=== PATIENT | female | born 1985 | race Caucasian/White ===

== ENCOUNTER → 2021-05-12 17:11 | Outpatient (BNVA) | payer OTHER, SELFPAY | PROVIDERS: Visit Provider Emergency Medicine | DX: R39.9 Unspecified symptoms and signs involving the genitourinary system (principal); J30.2 Other seasonal allergic rhinitis; N39.0 Urinary tract infection, site not specified | CPT/HCPCS: 81000 ==

== ENCOUNTER 2024-07-21 09:54 | Emergency (ER) | payer OTHER, SELFPAY ==
--- NOTE | 2024-07-21 10:00 | ECG_ITS ---
[facility] Test Date: 2024-07-21 Pat Name: Manasa Walker Department: Room: Gender: Female Fha Underwriter: : 1985 Requested By: Sheryl Parekh Order Number: [id number] Chacon MD: Pascual Contreras M.D. Measurements Intervals [place] Rate: 97 P: 70 MD: 153 QRS: 73 QRSD: 86 T: 56 QT: 315 QTc: 401 Interpretive Statements SINUS RHYTHM INTERPRETATION BASED ON A DEFAULT AGE OF 40 YEARS No previous ECG available for comparison Electronically Signed On 07-22-2024 21:43:55 OBSTETRICS TECH by Pascual Contreras M.D. [email or web address]
[2024-07-21 10:06] VITALS: BP 107/63; PULSE 87; RESP 16; TEMP 36.4; O2SAT 98; BMI 25.8
--- NOTE | 2024-07-21 10:15 | XR_ITS ---
WS: [id number] XR chest 1V portable [id number] REASON FOR EXAM: chest pain FINDINGS: The heart and the mediastinum are within normal limits. Calcified granulomas disease bilaterally. No acute pulmonary parenchymal or pleural abnormality. Bony thorax is intact without significant abnormality. XR/XR chest 1V portable [id number] IMPRESSION: No acute abnormality.
[2024-07-21 10:16] VITALS: BP 107/63; PULSE 91; RESP 16; O2SAT 96
--- NOTE | 2024-07-21 10:16 | ED_ITS ---
HPI - General Adult 2 General: Chief complaint: Chest Pain Stated complaint: cp, headache Time Seen by Provider: 07/21/24 10:05 Source: patient Mode of arrival: ambulatory Limitations: no limitations History of Present Illness: Patient is a 39-year-old female here for evaluation of intermittent chest pains over the past few weeks as well as a migraine headache. She states she has a longstanding history of migraine headaches and normally takes Tylenol. She states her headache today feels identical to previous migraines. Patient feels like her chest pain is mild and intermittent. No exertional symptoms. No known history of cardiac or pulmonary disease. Vital signs are stable upon arrival. She reports history of ADHD, autism, POTS. Onset (ago): day(s) Location: head and chest Severity: mild Pain Consistency: intermittent Relieving factors: none Exacerbating factors: none Associated symptoms: Reports chest pain and headache(s); Deny dyspnea, malaise, nausea, rash, palpitations, syncope or vomiting Related Data Home Medications Medication Instructions Recorded Confirmed bupropion HCl 150 mg 24 hr tablet, 150 mg PO QAM 05/12/21 07/21/24 extended release (Wellbutrin XL) Allergies Allergy/AdvReac Type Severity Reaction Status Date / Time diphenhydramine AdvReac Intermediate panic Verified 03/14/22 16:03 [From Benadryl] attack, migraine Review of Systems 2 Const: Denies: fever(s), chills, body aches, fatigue or malaise Eyes: Denies: change in vision or blurry vision Card: Reports: chest pain; Denies: palpitations, irregular heart rhythm, edema, swelling of feet/ankles, lightheadedness, syncope, pre-syncope, dyspnea on exertion, orthopnea, leg pain with exertion or acrocyanosis Resp: Denies: dyspnea, productive cough or pain on inspiration GI: Denies: abdominal pain, nausea, vomiting, heartburn or diarrhea : Denies: dysuria Musc: Denies: neck pain, back pain or joint pain Skin/Breast: Denies: rash Neuro: Reports: headache(s) and dizziness (Occasional-normal with her POTS); Denies: numbness in extremities, weakness in extremities or sensory changes PFSH ED 2 PFSH: Medical History Recurrent UTI Seasonal allergies Social History Smoking and tobacco/nicotine status: current some day tobacco/nicotine user cigarettes [ Other cigarette details: 1 once a week] Second hand smoke exposure: No Alcohol intake: current Alcohol intake frequency: few times a week Substance/Drug Use: current Substance/Drug use frequency: daily Physical Exam 2 Const: COMMON NORMALS: no acute distress, average body habitus, patient oriented x3, no limitations, healthy appearing, alert and well nourished G ENERAL APPEARANCE: cooperative ORIENTATION/CONSCIOUSNESS: Yes awake, Yes oriented to person, Yes oriented to place and Yes oriented to time HENMT: COMMON NORMALS: normocephalic and atraumatic HEAD & SCALP: normal to inspection, normocephalic and atraumatic Eye: COMMON NORMALS: Equal, round and reactive pupils present and EOMs intact bilaterally GENERAL EYE: appearance normal, both eyes and all related structures and normal light reflex PUPIL: Yes Equal, round and reactive pupils present DIRECT OPHTHALMOSCOPY: Yes normal light reflex Neck/C-Spine: COMMON NORMALS: full ROM, no lymphadenopathy, supple and no meningeal signs Chest: COMMONS NORMALS: normal inspection of the chest and normal palpation of entire chest wall Resp: COMMON NORMALS: normal respiratory effort and clear to auscultation bilaterally AUSCULTATION: clear to auscultation bilaterally Cardio: COMMON NORMALS: regular rate and regular rhythm RATE: regular rate RHYTHM: regular rhythm GI: COMMON NORMALS: Normal to inspection, nondistended, normoactive bowel sounds present, Soft to palpation, non-tender, No hepatosplenomegaly present and no masses PALPATION: Yes Soft to palpation and Yes No hepatosplenomegaly present : COMMON NORMALS: Yes no CVA tenderness BLADDER/KIDNEY EXAM: Yes no CVA tenderness Back/Pelvis: COMMON NORMALS: no CVA tenderness and thoracic and lumbar spine normal to inspection Extremity: COMMON NORMALS: normal to inspection, no clubbing, cyanosis or edema, no calf tenderness and no pedal edema GENERAL: Yes normal exam except as noted Neuro: MARIO ALBERTO COMA SCALE: document GCS findings [place] coma scale eye opening: Spontaneous Mario Alberto coma scale verbal response: Orientated Mario Alberto coma scale motor response: Obey commands Mario Alberto coma scale total score: 15 COMMON NORMALS: patient oriented x3, CN's II-XII intact bilaterally, moves all extremities, no focal motor deficits, no sensory deficits noted and gait normal SENSORIUM/ORIENTATION: Yes alert, Yes oriented to person, Yes oriented to place and Yes oriented to time MENINGEAL SIGNS: Yes no meningeal signs Skin: COMMON NORMALS: no rashes or lesions noted GENERAL SKIN EXAM: no rashes or lesions noted Course 2 Vital Signs: Vital signs: Vital Signs Temperature 97.6 F 07/21/24 10:06 Pulse Rate 91 07/21/24 10:16 Respiratory Rate 16 07/21/24 10:16 Blood Pressure 107/63 07/21/24 10:16 Pulse Oximetry 96 07/21/24 10:16 Oxygen Delivery Me thod Room Air 07/21/24 10:16 MDM - General Adult Medical Decision Making Patient is a 39-year-old female with no known cardiac history here for intermittent episodes of chest pain over the past several weeks as well as migraine headache. She states her headache feels identical to previous migraine headaches. She was given IV Toradol and radiating headache now to 09/29. She is not having any active chest pain during her stay. Her vital signs are stable. Blood work including troponin are unremarkable. Her EKG is nonischemic. CXR is unremarkable. She will be encouraged to follow-up with her primary care provider. Return to ED precautions given. Medical Records I reviewed the patient's medical records. Lab Data I reviewed the patient's lab results. 07/21/24 10:32 07/21/24 10:32 Radiology Impressions Chest X-Ray 07/21/24 10:15 IMPRESSION: No acute abnormality. Laboratory Results WBC 5.67 10^3/uL (3.29-11.43) 07/21/24 10:32 RBC 4.82 10^6/uL (3.85-5.65) 07/21/24 10:32 Hgb 14.40 g/dL (11.27-16.99) 07/21/24 10:32 Hct 44.2 % (36-47) 07/21/24 10:32 MCV 91.7 fl (85-98) 07/21/24 10:32 MCH 29.9 pg (27-33) 07/21/24 10:32 MCHC 32.6 g/dL (30-55) 07/21/24 10:32 RDW 12.0 % (12.1-15.1) L 07/21/24 10:32 Plt Count 320 10^3/cmm (157-399) 07/21/24 10:32 MPV 8.8 fL (7.4-10.4) 07/21/24 10:32 Neut % (Auto) 62.5 % 07/21/24 10:32 Lymph % (Auto) 27.3 % 07/21/24 10:32 [place] % (Auto) 9.3 % 07/21/24 10:32 Eos % (Auto) 0.0 % 07/21/24 10:32 Baso % (Auto) 0.5 % 07/21/24 10:32 Neut # (Auto) 3.54 10^3/uL (1.8-7.7) 07/21/24 10:32 Lymph # (Auto) 1.6 10^3/uL (0.8-4.8) 07/21/24 10:32 [place] # (Auto) 0.5 10^3/uL (0.2-0.9) 07/21/24 10:32 Eos # (Auto) 0.0 10^3/uL (0.0-0.8) 07/21/24 10:32 Baso # (Auto) 0.0 10^3/uL (0.0-0.1) 07/21/24 10:32 Nucleated RBC % (auto) 0 % 07/21/24 10:32 Nucleated RBCs # 0.0 /100WBC 07/21/24 10:32 Sodium 141 mmol/L (136-145) 07/21/24 10:32 Potassium 4.1 mmol/L (3.5-5.1) 07/21/24 10:32 Chloride 106 mmol/L (98-107) 07/21/24 10:32 Carbon Dioxide 25 mmol/L (22-29) 07/21/24 10:32 Anion Gap 14.1 (5-19) 07/21/24 10:32 BUN 10 mg/dL (6-20) 07/21/24 10:32 Creatinine 0.8 mg/dL (0.5-0.9) 07/21/24 10:32 GFR Calculation 79.9 mL/min (90-130) L 07/21/24 10:32 Glucose 88 mg/dL (65-115) 07/21/24 10:32 Calculated Osmolality 290 mOsm/kg (285-295) 07/21/24 10:32 Calcium 9.4 mg/dL (8.5-10.5) 07/21/24 10:32 Total Bilirubin 0.7 mg/dL (0.15-1.2) 07/21/24 10:32 AST 16 U/L (0-32) 07/21/24 10:32 ALT 21 U/L (0-33) 07/21/24 10:32 Alkaline Phosphatase 74 U/L (35-105) 07/21/24 10:32 Troponin T Baseline < 6 ng/L (0-10) 07/21/24 10:32 Total Protein 6.9 g/dL (6.6-8.7) 07/21/24 10:32 Albumin 4.5 g/dL (3.5-5.2) 07/21/24 10:32 Globulin 2.4 g/dL (1.3-4.6) 07/21/24 10:32 HCG, Qual Negative (Negative) 07/21/24 10:32 All radiology interpretation(s) finalized by discharge Discharge Plan Discharge Patient Disposition: Home Clinical Impression: Chest pain, Headache Condition: Stable Prescriptions: No Action bupropion HCl [Wellbutrin XL] 150 mg tablet extended release 24 hr 150 mg PO QAM Discharge Orders: Discharge ED (Routine); Ordered 07/21/24 Ordered By: Sheryl Parekh Coding Level of Care Code ED Poke In for Graceg Alona
[2024-07-21] MEDS: ketorolac 60 mg/2 mL INJ 30 MG IVP (10:30)
[2024-07-21 10:39] LABS: Basophils % 0.5 %; Hematocrit 44.2 % (36-47); Lymphocytes # 1.6 10^3/uL (0.8-4.8); Lymphocytes % 27.3 %; Mean Corpuscular HGB Conc 32.6 g/dL (30-55); Mean Corpuscular Hemoglobin 29.9 pg (27-33); Mean Corpuscular Volume 91.7 fl (85-98); Mean Platelet Volume 8.8 fL (7.4-10.4); Monocytes # 0.5 10^3/uL (0.2-0.9); Monocytes % 9.3 %; Neutrophils # 3.54 10^3/uL (1.8-7.7); Neutrophils % 62.5 %; Nucleated Red Blood Cells % 0 %; Platelet Count 320 10^3/cmm (157-399); Red Blood Count 4.82 10^6/uL (3.85-5.65); White Blood Count 5.67 10^3/uL (3.29-11.43)
[2024-07-21 10:51] LABS: HCG, Serum Qual Negative (Negative)
[2024-07-21 10:56] LABS: Alanine Aminotransferase 21 U/L (0-33); Albumin Level 4.5 g/dL (3.5-5.2); Alkaline Phosphatase 74 U/L (35-105); Anion Gap 14.1 (5-19); Aspartate Amino Transferase 16 U/L (0-32); Blood Urea Nitrogen 10 mg/dL (6-20); Calcium 9.4 mg/dL (8.5-10.5); Carbon Dioxide 25 mmol/L (22-29); Chloride 106 mmol/L (98-107); Globulin 2.4 g/dL (1.3-4.6); Glomerular Filtration Rate 79.9 mL/min (90-130); Glucose 88 mg/dL (65-115); Osmolality Calculated 290 mOsm/kg (285-295); Potassium 4.1 mmol/L (3.5-5.1); Sodium 141 mmol/L (136-145); Total Bilirubin 0.7 mg/dL (0.15-1.2); Total Protein 6.9 g/dL (6.6-8.7)
[2024-07-21 10:59] LABS: Troponin(5th) Baseline < 6 ng/L (0-10)
[2024-07-21 11:31] VITALS: BP 128/58; PULSE 81; O2SAT 98
== END 2024-07-21 11:48 | disposition home or self-care (01) ==
PROVIDERS: Emergency Provider Physician Assistant
DX: R07.9 Chest pain, unspecified (principal); R51.9 Headache, unspecified; F17.210 Nicotine dependence, cigarettes, uncomplicated
CPT/HCPCS: 71045; 80053; 84484; 84703; 85025; 93005; 96374; 99285; J1885

== ENCOUNTER 2024-10-18 11:00 | Emergency (ER) | payer OTHER, SELFPAY ==
[2024-10-18 11:01] VITALS: BP 124/77; PULSE 68; RESP 18; TEMP 36.8; O2SAT 100
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
[2024-10-18 11:23] LABS: Bilirubin Urine Negative (Negative); Blood Urine Negative (Negative); Glucose Urine UA Negative (Normal); Ketones Urine Trace (Negative); Leukocyte Esterase Urine Negative (Negative); Nitrate Urine Positive (Negative); Protein Urine 1+ (Negative); Specific Gravity, Urine 1.019 (1.005-1.030); Urine Appearance Cloudy (CLEAR); Urine Color Yellow (Yellow)
[2024-10-18 11:29] LABS: Basophils % 0.4 %; Hematocrit 43.4 % (36-47); Lymphocytes # 1.5 10^3/uL (0.8-4.8); Lymphocytes % 20.3 %; Mean Corpuscular HGB Conc 33.2 g/dL (30-55); Mean Corpuscular Hemoglobin 29.6 pg (27-33); Mean Corpuscular Volume 89.1 fl (85-98); Mean Platelet Volume 8.4 fL (7.4-10.4); Monocytes # 0.4 10^3/uL (0.2-0.9); Monocytes % 5.9 %; Neutrophils # 5.47 10^3/uL (1.8-7.7); Neutrophils % 73.1 %; Nucleated Red Blood Cells % 0 %; Platelet Count 303 10^3/cmm (157-399); Red Blood Count 4.87 10^6/uL (3.85-5.65); Red Cell Distribution Width 11.9 % (12.1-15.1); White Blood Count 7.48 10^3/uL (3.29-11.43)
[2024-10-18 11:33] LABS: Add Urine Culture? Yes; Add Urine Microscopic? YES; Bacteria Urine 4+ /hpf; RBC Urine 0-4 /hpf (0-2)
[2024-10-18 11:40] LABS: HCG, Serum Qual Negative (Negative)
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
[2024-10-18 11:49] LABS: Alanine Aminotransferase 29 U/L (0-33); Albumin Level 4.3 g/dL (3.5-5.2); Alkaline Phosphatase 70 U/L (35-105); Anion Gap 12.5 (5-19); Aspartate Amino Transferase 21 U/L (0-32); Blood Urea Nitrogen 9 mg/dL (6-20); Calcium 9.4 mg/dL (8.5-10.5); Carbon Dioxide 24 mmol/L (22-29); Chloride 102 mmol/L (98-107); Globulin 3.2 g/dL (1.3-4.6); Glomerular Filtration Rate 79.9 mL/min (90-130); Glucose 96 mg/dL (65-115); Osmolality Calculated 279 mOsm/kg (285-295); Potassium 3.5 mmol/L (3.5-5.1); Sodium 135 mmol/L (136-145); Total Bilirubin 0.8 mg/dL (0.15-1.2); Total Protein 7.5 g/dL (6.6-8.7)
[2024-10-18 12:41] VITALS: BP 96/60; PULSE 78; O2SAT 100
== END 2024-10-18 12:41 | disposition home or self-care (01) ==
PROVIDERS: Emergency Provider Family Medicine
DX: S40.812A Abrasion of left upper arm, initial encounter (principal); Y04.8XXA Assault by other bodily force, initial encounter; R07.81 Pleurodynia; M25.531 Pain in right wrist
CPT/HCPCS: 36415; 71101; 73000; 73110; 80053; 81001; 84703; 85025; 87077; 87086; 87186; 99284

== ENCOUNTER 2025-08-16 13:28 | Emergency (ER) | payer OTHER, SELFPAY ==
[2025-08-16 13:32] VITALS: BP 108/70; PULSE 111; TEMP 36.8; O2SAT 97
--- OUTSIDE RECORDS SUMMARY | 2025-08-16 13:34 | XMS_ITS | Clinical Summary ---
Author Organization [facility] Address [address] [facility] Attn: Epic Prelude ADT [place] [address] Care Team Providers Care Preschool Director Name Role Phone Unavailable Primary Care Provider Unavailabl e Allergies Active Allergy Reactions Criticality Noted Date Comments Diphenhydramine Anxiety Low 2019 Medications triamcinolone acetonide (KENALOG) 0.5 % Cream Apply to affected area 2 times daily. 15 Gram 0 9 Active buPROPion HCL (WELLBUTRIN SR) 150 mg Sustained Release 12 hour tablet Take 150 mg by mouth 2 times daily. Active HYDROcodone 5 mg-acetaminoph en 325 mg tablet Take 1 Tablet by mouth every 8 hours as needed for Pain, Moderate. Active oxyCODONE-acet aminophen (PERCOCET) 5-325 mg tabletIndicati ons:Closed fracture of phalanx of fifth toe Take 1 Tablet by mouth every 8 hours as needed for Pain, Severe. Max Daily Amount: 3 Tablets 9 Tablet 5 025 Discontinued oxyCODONE-acet aminophen (PERCOCET) 5-325 mg tabletIndicati ons:Closed fracture of phalanx of fifth toe Take 1 Tablet by mouth every 8 hours as needed for Pain, Severe. Max Daily Amount: 3 Tablets 9 Tablet 5 025 Active Problems Problem Noted Date Diagnosed Date Closed fracture of phalanx of fifth toe 07/29/20 25 Flank pain 2019 Nausea \T\ vomiting 2019 UTI (urinary tract infection) 2019 Encounters Date Type Department Care Team Description 08/04/2025 External Device Data [facility] ABSTRACTION Provider, Abstract 08/04/2025 External Device Data [facility] ABSTRACTION Provider, Abstract 08/04/2025 External Device Data [facility] ABSTRACTION Provider, Abstract 07/29/2025 7:53 AM MANAGER PAID - 07/29/2025 10:52 AM MANAGER PAID Emergency [facility] Emergency Medicine [address] [place] [address] Aristeo Scott MD Closed fracture of phalanx of fifth toe (Primary Dx) Discharge Disposition: Home or Self Care 07/29/2025 Travel from Last 3 Months Social History Tobacco Use Types Packs/Day Years Used Date Smoking Tobacco: Never Smokeless Tobacco: Never Alcohol Use Standard Drinks/Week Comments Yes 0 (1 standard drink = 0.6 oz pur e alcohol) Food Insecurity Answer Date Recorded Do you find you are eating l ess than you should because you can t pay for food? No 07/29/2025 Transportation Needs Answer Date Record ed Have you gone without health care because you didn t have a way to get there? Or worry about transportation for future doctor visits, garbage pick up worker medication, etc.? No 2024 Housing Stability Answer Date Recorded Do you worry you won t have a steady place to sleep or struggle to pay rent or mortgage? No 07/29/2025 Utility Needs Answer Date Recorded Do you have difficulty payin g for utility costs (electric, water or gas bills)? No 07/29/2025 Medication Needs Answer Date Recorded Have you skipped taking medi cation due to cost or worry you can t afford new medications? No 07/29/2025 Feeling Safe Answer Date Recorded Are you in a relationship wi th someone who hurts you emotionally and/or physically? No 07/29/2025 Comments No Sex and Gender Information Value Date Recorded Sex Assigned at Not on file Legal Sex Female 8:13 PM MANAGER PAID Gender Identity Not on file Sexual Orientation Not on file Last Filed Vital Signs Vital Sign Reading Time Taken Comments Blood Pressure 102/71 07/29/2025 10:45 AM MANAGER PAID Pulse 61 07/29/2025 10:45 AM MANAGER PAID Temperature 36.4 C (97.5 F) 07/29/2025 7:57 AM MANAGER PAID Respiratory Rate 14 07/29/2025 10:4 5 AM MANAGER PAID Oxygen Saturation 98% 07/29/2025 10: 45 AM MANAGER PAID Inhaled Oxygen Concentration - - Weight 80.2 kg (176 lb 12.8 oz) 07/29/2025 7:57 AM MANAGER PAID Height 172.7 cm (5' 8 ) 07/29/2025 7:57 AM MANAGER PAID Body Mass Index 26.88 07/29/2025 7:57 AM MANAGER PAID Plan of Treatment Health Maintenance Due Date Last Done Comments Pre-Diabetes and Diabetes Screening 1985 DTAP/TDAP/TD VACCINES (1 - Tdap) 2004 HEPATITIS B VACCINES (1 of 3 - 19+ 3-dose series) 2004 HPV/Cotest (21-29) 2006 CERVICAL CANCER SCREENING 2015 HPV/Cotest (30-65) 2015 PAP SMEAR 2015 INFLUENZA VACCINE (#1) 2025 BREAST CANCER SCREENING 2025 COVID-19 Vaccine ( - 2024- season) 04/20/202508/2021, 12/03/2020 HPV VACCINES (No Doses Required) Completed Procedures Procedure Name Priority Date/Time Associated Diagnosis Comments BASIC FRACTURE AND FRACTURE DISLOCATION TREATMENT Routine 07/29/2025 10:47 AM MANAGER PAID XR TOE(S) RIGHT Stat 07/29/2025 8:28 AM MANAGER PAID from Last 3 Months Results * Fracture and Fracture Dislocation (07/29/2025 10:47 AM MANAGER PAID) Narrative Aristeo Scott MD - 07/29/2025 10:47 AM MANAGER PAID Aristeo Scott MD 07/29/2025 10:51 AM Fracture and Fracture Dislocation Date/Time: 07/29/2025 10:47 AM Performed by: Aristeo Scott MD Authorized by: Aristeo Scott MD Consent: Consent obtained: Verbal Consent given by: Patient Risks, benefits, and alternatives were discussed: yes Risks discussed: Nerve damage, pain and vascular damage Alternatives discussed: Observation, alternative treatment, delayed treatment, no treatment and referral Tobias protocol: Procedure explained and questions answered to patient or proxy's satisfaction: yes Imaging studies available: yes Patient identity confirmed: Verbally with patient, hospital-assigned identification number and arm band Injury: Injury location: Toe Toe injury location: R fifth toe Toe fracture type: proximal phalanx Pre-procedure details: Distal neurologic exam: Normal Distal perfusion: distal pulses strong and brisk capillary refill Sedation: Sedation type: None Anesthesia: Anesthesia method: Local infiltration Local anesthetic: Bupivacaine 0.5% w/o epi Procedure details: Manipulation performed: yes Skeletal traction used: yes Immobilization: Splint and tape Splint type: Finger Supplies used: Aluminum splint Attestation: Splint applied and adjusted personally by me Post-procedure details: Post-procedure CMS: Bupivacaine in place. Unable to evaluate postmanipulation. Distal perfusion: brisk capillary refill Range of motion: not applicable Procedure completion: Tolerated well, no immediate complications us Aristeo Scott MD PROCEDURE/MINOR SURGICAL ORDERA BLES Final Result * XR TOE(S) RIGHT (07/29/2025 8:28 AM MANAGER PAID) Anatomical Region Laterality Modality Ankle / Foot Computed Radiogr aphy 07/29/2025 8:28 AM MANAGER PAID Impressions 07/29/2025 8:55 AM MANAGER PAID IMPRESSION: Please see below. Exam: XR TOE(S) RIGHT Date/Time of Exam: 07/29/2025 8:28 AM Reason For Exam: Injury. Diagnosis: See Reason for Exam. Findings: Mildly displaced fractured fifth proximal phalanx. Remainder of imaged right foot intact. No subluxation. Soft tissues nonspecific. Narrative Procedure Note Liseth Cole MD - 07/29/2025 IMPRESSION: Please see below. Exam: XR TOE(S) RIGHT Date/Time of Exam: 07/29/2025 8:28 AM Reason For Exam: Injury. Diagnosis: See Reason for Exam. Findings: Mildly displaced fractured fifth proximal phalanx. Remainder of imaged right foot intact. No subluxation. Soft tissues nonspecific. us Aristeo Scott MD DIAGNOSTIC IMAGING ORDERABLES F inal Result from Last 3 Months Insurance [facility]
--- OUTSIDE RECORDS SUMMARY | 2025-08-16 13:34 | XMS_ITS | Clinical Summary ---
Author Organization [facility] Address [address] [place] [address] Care Team Providers Care Sequencing Machine Operator Name Role Phone Kelley Soto Primary Care Provider [phone] Allergies Active Allergy Reactions Criticality Noted Date Comments Diphenhydramine Anxiety Low 2019 Medications triamcinolone acetonide (KENALOG) 0.5 % Cream Apply to affected area 2 times daily. 15 Gram 05/04/2019 Active Active Problems Problem Noted Date Diagnosed Date UTI (urinary tract infection) 2019 Flank pain 2019 Nausea & vomiting 2019 Social History Tobacco Use Types Packs/Day Years Used Date Smoking Tobacco: Never Smokeless Tobacco: Never Alcohol Use Standard Drinks/Week Comments Never 0 (1 standard drink = 0.6 oz pur e alcohol) Comments No Sex and Gender Information Value Date Recorded Sex Assigned at Not on file Legal Sex Female 10:09 AM CDT Gender Identity Not on file Sexual Orientation Not on file Last Filed Vital Signs Vital Sign Reading Time Taken Comments Blood Pressure 98/67 05/04/2019 1:10 PM CDT Pulse 90 04/14/2019 12:06 PM CDT Temperature 36.6 C (97.8 F) 05/04/2019 1:10 PM CDT Respiratory Rate 20 05/04/2019 1:10 PM CDT Oxygen Saturation 98% 05/04/2019 1:10 PM CDT Inhaled Oxygen Concentration - - Weight 62.2 kg (137 lb 3.2 oz) 05/04/2019 12:27 PM CDT Height 172.7 cm (5' 8 ) 05/04/2019 12:27 PM CDT Body Mass Index 20.86 05/04/2019 12:27 PM CDT Plan of Treatment Health Maintenance Due Date Last Done Comments DTAP/TDAP/TD VACCINES (1 - Tdap) 2004 HEPATITIS B VACCINES (1 of 3 - 19+ 3-dose series) 03/21 HPV/Cotest (21-29) 2006 CERVICAL CANCER SCREENING 2015 HPV/Cotest (30-65) 2015 PAP SMEAR 2015 INFLUENZA VACCINE (#1) 2025 BREAST CANCER SCREENING 2025 HPV VACCINES (No Doses Required) Completed Insurance [employer] Advance Directives For more information, please contact: [phone] * Full Code (Latest Code Status on File) Date Activated Date Inactivated Comments 2019 4:43 PM 04/11/2019 3:08 PM Care Teams Sequencing Machine Operator Relationship Specialty Start Date End Date Kelley Soto DO [address] [address] PCP - General Family Practice 04/14/19
[2025-08-16 14:35] VITALS: BP 91/65; PULSE 97; RESP 16; O2SAT 98
--- NOTE | 2025-08-16 15:26 | ED_ITS ---
HPI - Extremity Problem General: Chief complaint: Extremity Injury, Lower Stated complaint: right foot numbness/tingling post break Time Seen by Provider: 08/16/25 14:39 History of Present Illness: Patient is 40-year-old female that presented to the ED with right foot numbness and tingling post fracture. Patient was seen at [facility] for right fifth toe pain and fracture was diagnosed. This was splinted, and she was placed in hard shoe. She was unable to get in her doctor for 1 week. She returned to the ED with concern of right foot numbness and tingling. She is being compliant to her postop shoe, and has it in place at this time. No fevers, no redness. Sensation changes are the main issue. She does have associated pain. Associated symptoms: Deny chest pain, fever(s) or rash Related Data Home Medications ?Medication ?Instructions ?Recorded ?Confirmed bupropion HCl 150 mg 24 hr tablet, 150 mg PO QAM 05/1210/18/24 extended release (Wellbutrin XL) Previous Rx's ?Medication ?Instructions ?Recorded diclofenac sodium 75 mg 75 mg PO Q12H PRN pain #20 t abs 10/18/24 tablet,delayed release Allergies Allergy/AdvReac Type Severity Reaction Status Date / Time nitrofurantoin (From Allergy Unknown Verified 08/16/25 13:36 Macrobid) diphenhydramine (From AdvReac Intermediate panic Verified 08/16/25 13:36 Benadryl) attack, migraine Review of Systems Const: Denies: fever(s) or chills Card: Denies: chest pain Resp: Denies: dyspnea GI: Denies: abdominal pain : Denies: dysuria, urinary frequency or urinary urgency Musc: Reports: extremity pain, joint pain, joint stiffness and limited range of motion; Denies: neck pain, back pain, joint swelling, joint redness or joint warmth Skin/Breast: Denies: rash Neuro: Reports: sensory changes; Denies: headache(s), numbness in extremities or weakness in extremities PFS ED PFSH: Medical History (Updated 08/16/25 @ 15:30 by MIGUEL Katz) Recurrent UTI Seasonal allergies Social History Smoking and tobacco/nicotine status: current some day tobacco/nicotine user cigarettes [ Other cigarette details: 1 once a week] Second hand smoke exposure: No Alcohol intake: current Alcohol intake frequency: few times a week Substance/Drug Use: current Substance/Drug use frequency: daily Physical Exam Const: COMMON NORMALS: no acute distress GENERAL APPEARANCE: cooperative and comfortable ORIENTATION/CONSCIOUSNESS: Yes awake, Yes oriented to person, Yes oriented to place and Yes oriented to time HENMT: COMMON NORMALS: normocephalic, atraumatic and hearing grossly normal bilaterally HEAD & SCALP: normocephalic and atraumatic Resp: COMMON NORMALS: normal respiratory effort, No retractions, No use of accessory muscles and clear to auscultation bilaterally AUSCULTATION: clear to auscultation bilaterally Cardio: COMMON NORMALS: regular rate, regular rhythm and No murmurs present (Cardio) RATE: regular rate RHYTHM: regular rhythm GI: COMMON NORMALS: Normal to inspection, nondistended, normoactive bowel sounds present, Soft to palpation and No hepatosplenomegaly present AUSCULTATION: Yes normoactive bowel sounds PALPATION: Yes Soft to palpation, No Tenderness to palpation present (GI), No Guarding due to palpation present (GI) and Yes No hepatosplenomegaly present : COMMON NORMALS: Yes no CVA tenderness BLADDER/KIDNEY EXAM: Yes no CVA tenderness Back/Pelvis: COMMON NORMALS: no CVA tenderness and thoracic and lumbar spine normal to inspection Extremity: COMMON NORMALS: normal to inspection, capillary refill normal, no clubbing, cyanosis or edema, no calf tenderness and no pedal edema NARRATIVE EXTREMITY EXAM: Tenderness to the fifth phalanx. No redness. Localized swelling. Neuro: SENSORIUM/ORIENTATION: Yes oriented to person, Yes oriented to place and Yes oriented to time Course Vital Signs: Vital signs: Vital Signs Temperature 98.3 F 08/16/25 13:32 Pulse Rate 97 08/16/25 14:35 Respiratory Rate 16 08/16/25 14:35 Blood Pressure 91/65 08/16/25 14:35 Pulse Oximetry 98 08/16/25 14:35 Oxygen Delivery Me thod Room Air 08/16/25 14:35 MDM - Extremity (Nontraumatic) Medical Decision Making Patient is 40-year-old female that comes in with complaints of right fifth toe p ain. She has had some sensation changes. No other change. She is compliant to her postop shoe. Referral for Dr. Zhu is made. Medical Records I reviewed the patient's medical records. No radiology studies performed this visit Discharge Plan Discharge Patient Disposition: Home Clinical Impression: Strain of fifth toe of right foot Condition: Stable Prescriptions: No Action bupropion HCl [Wellbutrin XL] 150 mg tablet extended release 24 hr 150 mg PO QAM diclofenac sodium 75 mg tablet,delayed release (DR/EC) 75 mg PO Q12H PRN (Reason: pain) Qty: 20 0RF Discharge Orders: Discharge ED (Routine); Ordered 08/16/25 Ordered By: Maria Guadalupe Bailey Referrals: Robby Zhu DPM [Physician, Podiatry] Discharge Diet: Usual diet Discharge Activity: Limit activity as instructed Patient Instructions: Toe Fracture (ED), Patient Portal & Tim Instructions Activity Restrictions/Additional Instructions: - Continue to wear your postop shoe anytime your foot is on the ground - Ice this area and elevate - Tylenol and ibuprofen for pain - Referral made: Dr. Zhu, farm tractor operator. You are welcome to call tomorrow. The referral is in the system. Otherwise, case management will contact you for an appointment - Return to ED if you have worsening pain, fever greater than 100.4 ?F, weakness. Thank you for choosing [facility] for your healthcare needs today. You have been screened and evaluated and felt safe for discharge. Health conditions do change or evolve sometimes and as such it is important that you follow up with your Primary Doctor to be re checked, 3-5 days is a general good time frame for follow up. You are always welcome to return to the ED for re assessment if your symptoms are worsening or you have new concerns Print Language: Iraqi Coding Level of Care Code ED Account Development Associate for Fredrick Sage
[2025-08-16] MEDS: orphenadrine 30 mg/mL Inj 2 mL 60 MG IM (15:32)
== END 2025-08-16 15:52 | disposition home or self-care (01) ==
PROVIDERS: Emergency Provider Physician Assistant
DX: S96.911A Strain of unspecified muscle and tendon at ankle and foot level, right foot, initial encounter (principal); F17.210 Nicotine dependence, cigarettes, uncomplicated; X58.XXXA Exposure to other specified factors, initial encounter
CPT/HCPCS: 96372; 99284; J1885; J2360

== ENCOUNTER → 2025-08-18 14:00 | Outpatient (BNVA) | payer OTHER, SELFPAY | PROVIDERS: Visit Provider Podiatrist Foot & Ankle Surgery | DX: S92.501A Displaced unspecified fracture of right lesser toe(s), initial encounter for closed fracture (principal); X58.XXXA Exposure to other specified factors, initial encounter | CPT/HCPCS: 73630 ==

== ENCOUNTER 2025-08-18 15:14 | Outpatient (CLI) | payer OTHER, SELFPAY | END 2025-08-18 15:15 | disposition home or self-care (01) | LOC: SPT 15:14 | PROVIDERS: Visit Provider Podiatrist Foot & Ankle Surgery | DX: Z46.89 Encounter for fitting and adjustment of other specified devices (principal); S92.501D Displaced unspecified fracture of right lesser toe(s), subsequent encounter for fracture with routine healing; X58.XXXD Exposure to other specified factors, subsequent encounter | CPT/HCPCS: L3031 ==